=== PATIENT | female | born 1985 ===

== ENCOUNTER → 2019-01-05 | Outpatient (CLI) | payer OTHER ==
[2017-10-10 09:29] VITALS: BMI 36.0
[~2019-01-05] MED LIST: ALBU8.5H IH; AMOX-559 PO; AZIT-1 PO; BENZ200C15 PO; CALC-521 PO; FLU60VIA41 IM; GUAI120L3 PO; HYDR-385 PO; HYDR5SUS PO; IBUP800T37 PO; LOR5/325 PO; PRED20TA6 PO; PREN-127 PO; RANI-366 PO
[2019-01-05 11:28] LABS: PLATELET COUNT, AUTOMATED 395 K/uL (150-450)
--- NOTE | 2019-01-05 12:01 | RADIOLOGY IMAGING REPORT ---
[place] [facility] [place] NAME: Lexus Fierro : 1985 MR: [id number] V: [id number] EXAM DATE: ORDERING PHYSICIAN: SHENA GILLILAND TECHNOLOGIST: Location: [facility] [place] Patient: Lexus Fierro : 1985 Visit/Account:[id number] Date of Sevice: 01/05/2019 Exam type: CHEST PA LAT History: Cough x1 month. Now with SOB and chest pain x1 week. Comparison: None. Findings: The lungs are free of acute effusions, infiltrates or edema. The cardiac silhouette is normal in siz e. The trachea is in midline. There is no evidence of a pneumothorax or pneumomediastinum. IMPRESSION: 1. No acute cardiopulmonary process is seen Report Dictated By: Ira Salazar MD at 01/05/2019 11:56 AM Report E-Signed By: Ira Salazar MD at 01/05/2019 11:56 AM WSN:[email or web address]
--- NOTE | 2019-01-05 12:39 | EKG ---
[place] [facility] [place]: PINA OCONNOR : [id number] MR: [id number] V: [id number] EXAM DATE: ORDERING PHYSICIAN: SHENA GILLILAND TECHNOLOGIST: CJ KENDRICK Test Reason : STABBING PAIN L Blood Pressure : / mmHG Vent. Rate : 077 BPM Atrial Rate : 077 BPM P-R Int : 152 ms QRS Dur : 088 ms QT Int : 404 ms P-R-T Axes : 052 022 016 degrees QTc Int : 457 ms Normal sinus rhythm Normal ECG No previous ECGs available Referred By: SHENA GILLILAND Confirmed By:
== END ==
LOC: LAB 10:57
PROVIDERS: ATTEND Nurse Practitioner Primary Care
DX: R07.9 Chest pain, unspecified (principal); R06.02 Shortness of breath
CPT/HCPCS: 36415; 71046; 82040; 82247; 82310; 82374; 82435; 82565; 82947; 84075; 84132; 84155; 84295; 84450; 84460; 84520; 85025; 85379

== ENCOUNTER → 2019-03-23 | Outpatient (CLI) | payer OTHER ==
[2017-10-10 09:29] VITALS: BMI 36.0
[~2019-03-23] MED LIST changes: +ETON1VAG7 VG
[2019-03-23 14:21] LABS: PLATELET COUNT, AUTOMATED 381 K/uL (150-450)
== END ==
LOC: LAB 13:49
PROVIDERS: ATTEND Student in an Organized Health Care Education/Training Program
DX: R53.83 Other fatigue (principal); R00.2 Palpitations
CPT/HCPCS: 36415; 82040; 82247; 82310; 82374; 82435; 82565; 82947; 83036; 84075; 84132; 84155; 84295; 84443; 84450; 84460; 84520; 85025

== ENCOUNTER → 2019-06-17 | Outpatient (CLI) | payer OTHER ==
[2017-10-10 09:29] VITALS: BMI 36.0
[~2019-06-17] MED LIST changes: -RANI-366 PO; +RANI-54 PO
[2019-06-17 17:24] LABS: PLATELET COUNT, AUTOMATED 434 K/uL (150-450)
== END ==
LOC: LAB 16:32
PROVIDERS: ATTEND Nurse Practitioner Primary Care
DX: R19.7 Diarrhea, unspecified (principal)
CPT/HCPCS: 36415; 82040; 82247; 82310; 82374; 82435; 82565; 82947; 83516; 84075; 84132; 84155; 84295; 84443; 84450; 84460; 84520; 85025; 85651; 86140

== ENCOUNTER → 2019-06-18 | Outpatient (CLI) | payer OTHER ==
[2017-10-10 09:29] VITALS: BMI 36.0
== END ==
LOC: LAB 14:46
PROVIDERS: ATTEND Nurse Practitioner Primary Care
DX: R19.7 Diarrhea, unspecified (principal)
CPT/HCPCS: 82274; 83630; 87045; 87177; 87324; 87449